=== PATIENT | female | born 2000 | race Caucasian/White ===

== ENCOUNTER 2021-06-02 10:48 | Emergency (ER) | payer OTHER ==
[~2021-06-02] VITALS: Ht 167.6 cm; Wt 63.6 kg
[2021-06-02] MEDS ORDERED: DEXAMETHASONE 4 MG/ML, 1ML ONE (11:21)
--- NOTE | 2021-06-02 11:25 | NUR ---
CXR AT BEDSIDE SWABBED FOR COVID PER GUIDELINE.SAMPLE WALKED TO LAB MEDICATED PER EMAR WITH PO LIQUID DECADRON UPDATED ON ESTIMATED POC
[2021-06-02] MEDS ORDERED: DEXAMETHASONE 4 MG/ML, 1ML PO ONE (11:30)
--- NOTE | 2021-06-02 11:57 | NUR ---
all testing resulted no change in exam-vss placed up for recheck
[2021-06-02 12:14] VITALS: BP 120/77
== END 2021-06-02 12:16 | disposition home or self-care (01) ==
LOC: ED 11:13
DX: B34.9 Viral infection, unspecified (principal); Z20.822 Contact with and (suspected) exposure to COVID-19; R06.02 Shortness of breath; R94.31 Abnormal electrocardiogram [ECG] [EKG]; J45.909 Unspecified asthma, uncomplicated; Z87.891 Personal history of nicotine dependence
CPT/HCPCS: 71045; 93005; 99285; J1100; U0003; U0005